=== PATIENT | male | born 1995 | race Two or more races ===

== ENCOUNTER 2020-01-07 23:51 | Inpatient (IN) | payer SELFPAY ==
[2020-01-08] MEDS: Ondansetron 4 MG/2 ML SDV ONE (00:05)
--- NOTE | 2020-01-08 00:14 | EDM.PDOC ---
ED HPI GENERAL MEDICAL PROBLEM - General Chief Complaint: General Stated Complaint: intoxication/unresponsive Time Seen by Provider: 01/07/20 23:51 Source of Information: Reports: EMS, EMS Notes Reviewed History Limitations: Reports: Altered Mental Status, Intoxication - History of Present Illness INITIAL COMMENTS - FREE TEXT/NARRATIVE: Pt comes into the emergency department via EMS for episode of unresponsive. 911 dispatch to local [facility] for patient that was outside sitting on the ground and not responding. States that friends who were with him stated that he became extrem brenna intoxicated and was having difficulty standing he began to slump over and they assisted him to the ground where he then was not longer answering any questions appropriately. They state that he did not hit his head however the patient does have known abrasions to the head. EMS started an IV placed patient c-collar brought into the emergency department. Just prior to arrival to the emergency department the patient began vomiting in the ambulance. Patient has no family or individuals who had accompanied him into the emergency department. Patient remains unreliable for historian purposes. Onset: Unknown/Unsure - Related Data Allergies Allergy/AdvReac Type Severity Reaction Status Date / Time Unable to Assess Allergy Unverified 01/08/20 00:45 Home Meds: Home Meds . [Unable to Verify Home Med List] 01/08/20 [History] ED ROS GENERAL - Review of Systems Review Of Systems: Unable To Obtain Reason Not Obtained: not verbally responsive ED EXAM, GENERAL - Physical Exam Exam: See Below Exam Limited By: Altered Mental Status General Appearance: No Apparent Distress Eye Exam: Bilateral Eye: Nystagmus, PERRL Ears: Normal External Exam, Normal Canal, Hearing Grossly Normal, Normal TMs Ear Exam: Bilateral Ear: Auricle Normal, Canal Normal, TM normal Nose: Normal Inspection, Normal Mucosa Throat/Mouth: Normal Inspection, Normal Lips, Normal Voice, No Airway Compromise, Other (dried vomit on lips ) Head: Other (abrasion noted to right upper forehead with rock valerio noted. No hematoma, active bleeding, or ecchymosis noted) Neck: Normal Inspection Respiratory/Chest: No Respiratory Distress, Lungs Clear, Normal Breath Sounds, No Accessory Muscle Use, Chest Non-Tender Cardiovascular: Normal Peripheral Pulses, Regular Rate, Rhythm GI/Abdominal: Normal Bowel Sounds, Soft, No Organomegaly, No Distention, No Abnormal Bruit, No Mass, Other (active vomiting of chucks of food and liquids noted ) Back Exam: Normal Inspection, Full Range of Motion Extremities: Normal Inspection, No Pedal Edema, Normal Capillary Refill Neurological: Unresponsive Skin Exam: Warm, Dry, Intact Course - Orders/Labs/Meds Orders: Active Orders 24 hr Category Date Time Status Admission Status [Patient Status] [ADT] Routine ADT 01/08/20 01:15 Active EKG Documentation Completion [RC] STAT Care 01/08/20 00:58 Active Cervical Spine wo Cont [CT] Stat Exams 01/07/20 23:59 Taken Head wo Cont [CT] Stat Exams 01/07/20 23:59 Taken CORONAVIRUS COVID-19 PCR PHL Stat Lab 01/08/20 01:03 Ordered Magnesium Sulfate/Water [Magnesium Sulfate in Water Med 01/08/20 00:56 Active Premix] 2 gm Premix Bag 1 bag IV ONETIME Potassium Chloride Riders [KCL 20 MEQ in Water 50 ML] Med 01/08/20 00:59 Active 20 meq Premix Bag 1 bag IV ONETIME Medication Orders Magnesium Sulfate 2 gm/ Premix 50 mls @ 25 mls/hr IV ONETIME ONE Stop: 01/08/20 02:55 Potassium Chloride 20 meq/ (Premix) 50 mls @ 50 mls/hr IV ONETIME ONE Stop: 01/08/20 01:58 Labs: Laboratory Tests 01/08/20 01/08/20 01/08/20 Range/Units 00:15 00:18 00:18 WBC 10.8 H (4.0-10.0) x10^3/uL RBC 4.64 (4.5-6.0) x10^6/uL Hgb 14.5 (14.0-18.0) g/dL Hct 41.5 (40.0-52.0) % MCV 89.4 (78.0-93.0) fL MCH 31.3 (26.0-32.0) pg MCHC 34.9 (32.0-36.0) g/dL RDW Coeff of Ivonne 12.9 (10.0-15.0) % Plt Count 220 (130-400) x10^3/uL Neut % (Auto) 60.2 (50.0-80.0) % Lymph % (Auto) 29.6 (25.0-50.0) % [place] % (Auto) 8.0 (2.0-11.0) % Eos % (Auto) 2.0 (0.0-4.0) % Baso % (Auto) 0.2 (0.2-1.2) % Sodium 141 (136-145) mmol/L Potassium 2.4 L* (3.5-5.1) mmol/L Chloride 107 (98-107) mmol/L Carbon Dioxide 21 (21-32) mmol/L Anion Gap 15.4 (10-20) mmol/L BUN 9 (7-18) mg/dL Creatinine 0.9 (0.70-1.30) mg/dL Est Cr Clr Drug Dosing TNP Estimated GFR (MDRD) > 60 Glucose 119 H (74-106) mg/dL Calcium 7.3 L (8.5-10.1) mg/dL Corrected Calcium 7.62 L (8.5-10.1) mg/dL Total Bilirubin 0.2 (0.2-1.0) mg/dL AST 11 L (15-37) U/L ALT 16 (16-63) U/L Alkaline Phosphatase 82 (46-116) U/L Total Protein 6.3 L (6.4-8.2) g/dL Albumin 3.6 (3.4-5.0) g/dL Globulin 2.7 Albumin/Globulin Ratio 1.33 Urine Opiates Screen Negative (NEGATIVE) Ur Buprenorphine Scrn Negative (NEGATIVE) Ur Oxycodone Screen Negative (NEGATIVE) Ur EDDP (Meth Metab) Negative (NEGATIVE) Urine Methadone Screen Negative (NEGATIVE) Ur Barbituates Screen Negative (NEGATIVE) Ur Tricyclics Screen Negative (NEGATIVE) Ur Phencyclidine Scrn Negative (NEGATIVE) Ur Amphetamines Screen Negative (NEGATIVE) U Methamphetamines Scrn Negative (NEGATIVE) Urine MDMA Screen Negative (NEGATIVE) U Benzodiazepines Scrn Negative (NEGATIVE) Urine Cocaine Screen Negative (NEGATIVE) U Marijuana (THC) Screen Negative (NEGATIVE) Ethyl Alcohol 316 H* (0-3) mg/dL Meds: Medications Generic Name Dose Route Start Last Admin Trade Name Freq PRN Reason Stop Dose Admin Magnesium Sulfate 2 gm/ Premix 50 mls @ 25 mls/hr 01/08/20 00:56 IV 01/08/20 02:55 ONETIME ONE Potassium Chloride 20 meq/ 50 mls @ 50 mls/hr 01/08/20 00:59 Premix IV 01/08/20 01:58 ONETIME ONE Discontinued Medications Generic Name Dose Route Start Last Admin Trade Name Sury PRN Reason Stop Dose Admin Sodium Chloride 1,000 mls @ 1,000 mls/hr 01/07/20 23:59 Normal Saline IV 01/08/20 00:58 ONETIME ONE Ondansetron HCl Confirm 01/08/20 00:02 Zofran Administered 01/08/20 00:03 Dose 4 mg .ROUTE .STK-MED ONE Thiamine HCl 100 mg 01/08/20 01:09 Vitamin B-1 IM 01/08/20 01:10 ONETIME ONE Departure - Departure Time of Disposition: 01:15 Disposition: Admitted As Inpatient 65 Condition: Fair Clinical Impression: Unresponsive episode, Hypokalemia Alcohol intoxication Qualifiers: Complication of substance-induced condition: with unspecified complication Qualified Code(s): F10.929 - Alcohol use, unspecified with intoxication, unspecified - Discharge Information *PRESCRIPTION DRUG MONITORING PROGRAM REVIEWED*: Not Applicable *COPY OF PRESCRIPTION DRUG MONITORING REPORT IN PATIENT JERRELL: Not Applicable Referrals: PCP,None [Primary Care Provider] - Forms: ED Department Discharge - My Orders Last 24 Hours: My Active Orders 01/07/20 23:59 Cervical Spine wo Cont [CT] Stat Head wo Cont [CT] Stat 01/08/20 00:56 Magnesium Sulfate/Water [Magnesium Sulfate in Water Premix] 2 gm Premix Bag 1 bag IV ONETIME 01/08/20 00:58 EKG Documentation Completion [RC] STAT 01/08/20 00:59 Potassium Chloride Riders [KCL 20 MEQ in Water 50 ML] 20 meq Premix Bag 1 bag IV ONETIME 01/08/20 01:03 CORONAVIRUS COVID-19 PCR PHL Stat 01/08/20 01:15 Admission Status [Patient Status] [ADT] Routine - Assessment/Plan Last 24 Hours: My Active Orders 01/07/20 23:59 Cervical Spine wo Cont [CT] Stat Head wo Cont [CT] Stat 01/08/20 00:56 Magnesium Sulfate/Water [Magnesium Sulfate in Water Premix] 2 gm Premix Bag 1 bag IV ONETIME 01/08/20 00:58 EKG Documentation Completion [RC] STAT 01/08/20 00:59 Potassium Chloride Riders [KCL 20 MEQ in Water 50 ML] 20 meq Premix Bag 1 bag IV ONETIME 01/08/20 01:03 CORONAVIRUS COVID-19 PCR PHL Stat 01/08/20 01:15 Admission Status [Patient Status] [ADT] Routine Assessment:: 1. intoxication 2. unresponsive 3. Hypokalemia Plan: 1. Labs completed in the ER. 2. CT of the head and neck due to patient unresponsive and forehead abrasion- bystanders reported to EMS he did not fall but did not accompany pt to ER for further clarity- negative acute findings. Suspect arachnoid cyst posterior to the left cerebellum. 3. IV fluids provided- 1 L NS 4. UA/tox completed in ER. 5. Zofran given in the ER to help with vomiting 6. Covid-19 screening completed in ER. 7. Magnesium 2gm ordered and started in ER. 8. KCL 20meq ordered will be given on the floor 9. C-collar removed after CT results 9. Consultation completed with Dr. Rosa who will admit the pt to acute care for further medical management 10. Dr. Rosa request Thiamine 100mg IM ordered. Medication will be given on the floor 11. Nursing staff was updated regarding the plan of care
[2020-01-08 00:30] LABS: BUPRENORPHINE,URINE NEGATIVE (NEGATIVE); MARIJUANA,URINE NEGATIVE (NEGATIVE)
[2020-01-08 00:31] LABS: PHENCYCLIDINE,URINE NEGATIVE (NEGATIVE)
[2020-01-08 00:32] LABS: METHYLENEDIOXYMETHAMP,UR NEGATIVE (NEGATIVE)
[2020-01-08 00:53] LABS: CHLORIDE,CL 107 mmol/L (98-107); SODIUM,NA 141 mmol/L (136-145)
[2020-01-08 00:54] LABS: ANION GAP 15.4 mmol/L (10-20)
[2020-01-08] MEDS: Magnesium Sulfate/Water 2 GM in Premix Bag 1 BAG IV ONE (01:21)
[2020-01-08] MEDS: Thiamine 200 MG/2 ML MDV IM ONE ×2 (01:23→02:26)
[2020-01-08] MEDS: Sodium Chloride 0.9% 1,000 ML IV ONE ×2 (01:46→02:00)
[2020-01-08] MEDS ORDERED: Sodium Chloride 0.9% 10 ML Syringe FLUSH PRN (01:55)
[2020-01-08] MEDS ORDERED: Thiamine 200 MG/2 ML MDV IM ONE (02:09)
[2020-01-08] MEDS: Potassium Chloride Riders 20 MEQ in Premix Bag 1 BAG IV ONE (02:36)
[2020-01-08] MEDS: Dextrose 5%-0.9% NaCl with KCl 1,000 ML IV SCH ×2 (03:06→04:36)
--- NOTE | 2020-01-08 04:19 | HP ---
[id number] CHIEF COMPLAINT: The patient unable to give any. According to the emergency room provider note, the patient was brought to the emergency room by the ambulance. HISTORY OF PRESENT ILLNESS: The patient evidently is a 24-year-old male on a work visa from [facility]. He was found by some acquaintances to be outside of a bar after a lot of drinking. The patient could not stand up at all and then slumped over. They assisted him to the ground and they did not witness any head injuries. The patient was brought to the emergency room with a C-collar in position. In the ambulance, he had some vomiting as well. In the emergency room, he was not able to give any history. No other history was available from his associates. The patient was found to be hypokalemic in the emergency room. He is admitted for acute alcohol intoxication and hypokalemia. PAST MEDICAL HISTORY: Unknown. SOCIAL HISTORY: He is here on a work visa. Staff are attempting to locate next of kin. Habits, unknown. ALLERGIES: Unknown. MEDICATIONS: Unknown. REVIEW OF SYSTEMS: Unable to obtain. PHYSICAL EXAMINATION: Vital Signs: On the floor, his blood pressure is 84/39, heart rate 63, respiratory rate 14 with obvious alcohol on his breath, temperature 97.8. General: The patient appears to be well nourished. He is lying on his side. He does not respond to sternal rub or tickling on his nose. He does respond with withdrawal of his arm quite forcefully when IV Insertion attempt was made. He also withdraws his legs when passive range of motion of his legs was attempted. Skin: There are some superficial abrasions around the right forehead and nondenominational. Tattoo on his right forearm. Lymphatics: nonpalpable at neck or groin. Lungs: Clear. Cor: S1 and S2 normal without rubs, murmurs, or gallops. Abdomen: Soft and nontender. Extremities: No clubbing, cyanosis, or edema. Neurologic: Mental status is as above. Pupuls are somewhat dilated, but equal and reactive to light, and he intermittently withdraws to noxious stimulus. LABORATORY DATA: White count 10,800, hemoglobin 14.5, hematocrit 41.5, MCV 89.4, platelet count 220,000. Sodium 141, potassium 2.4, chloride 107, CO2 of 21, BUN 9, creatinine 0.9, glucose 119, corrected calcium 7.62, bilirubin 0.2, AST 11, ALT 16, alk phos 82, total protein 6.3, albumin 3.6. Toxicology is negative except for an alcohol level of 316. COVID test screen is negative. The patient had a head CT done showing no signs of intracranial bleeding. A CT spine done, which is normal as well. IMPRESSION: 1. Acute alcohol intoxication: The patient will be on his side at 30-degree angle to prevent aspiration. We will monitor oxygenation and respiratory status. 2. Hypokalemia, replaced with potassium: Unclear if he has been vomiting or what the cause of hypokalemia is. 3. Hypocalcemia. We will check in the morning. 4. Abrasions. We will check and see if he has had any tetanus immunizations. If not, that will need to be given. 5. Mild hypotension: We will rehydrate with D5 normal saline and normal saline. The patient will be kept n.p.o. throughout. MZL: 01/08/2020 02:25:33 MODL: 01/08/2020 04:14:09 /[id number] TOÑA
[2020-01-08 08:07] LABS: CHLORIDE,CL 112 mmol/L (98-107); SODIUM,NA 144 mmol/L (136-145)
[2020-01-08 08:12] LABS: ANION GAP 13.5 mmol/L (10-20)
[2020-01-08] MEDS: Nicotine 14 MG/24 Hr Patch TRDERM ONE (08:47)
--- NOTE | 2020-01-08 10:33 | PCM.PN ---
- General Info Date of Service: 01/08/20 Subjective Update: S: Pt woke up at 6:45 and pulled out his IV line, demanded to be discharged. He said he remembered going to a bar and drinking heavily and not much after that. He says he drinks rarely and had just broken up with his girlfriend. Pt was convinced to stay as his abs were not back yet and he had no way of finding his car and even if he did, he likely was still too drunk to drive legally. Pt consented to stay. 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 Pt denies any vomiting or diarrhea to account for low K +but has been working hard and not hydrating. - Patient Data Vitals - Most Recent: Last Vital Signs Temp 97.4 F 01/08/20 05:05 Pulse 57 L 01/08/20 05:05 Resp 16 01/08/20 05:05 BP 93/36 L 01/08/20 05:05 Pulse Ox 57 L 01/08/20 09:07 Weight - Most Recent: 156 lb 11.2 oz I&O - Last 24 Hours: Intake & Output 01/07/20 01/08/20 01/08/20 22:59 06:59 14:59 Intake Total 2330 Balance 2330 Lab Results Last 24 Hours: Laboratory Results - last 24 hr 01/08/20 01/08/20 01/08/20 Range/Units 00:15 00:18 00:18 WBC 10.8 H (4.0-10.0) x10^3/uL RBC 4.64 (4.5-6.0) x10^6/uL Hgb 14.5 (14.0-18.0) g/dL Hct 41.5 (40.0-52.0) % MCV 89.4 (78.0-93.0) fL MCH 31.3 (26.0-32.0) pg MCHC 34.9 (32.0-36.0) g/dL RDW Coeff of Ivonne 12.9 (10.0-15.0) % Plt Count 220 (130-400) x10^3/uL Neut % (Auto) 60.2 (50.0-80.0) % Lymph % (Auto) 29.6 (25.0-50.0) % [place] % (Auto) 8.0 (2.0-11.0) % Eos % (Auto) 2.0 (0.0-4.0) % Baso % (Auto) 0.2 (0.2-1.2) % Sodium 141 (136-145) mmol/L Potassium 2.4 L* (3.5-5.1) mmol/L Chloride 107 (98-107) mmol/L Carbon Dioxide 21 (21-32) mmol/L Anion Gap 15.4 (10-20) mmol/L BUN 9 (7-18) mg/dL Creatinine 0.9 (0.70-1.30) mg/dL Est Cr Clr Drug Dosing TNP Estimated GFR (MDRD) > 60 Glucose 119 H (74-106) mg/dL Calcium 7.3 L (8.5-10.1) mg/dL Corrected Calcium 7.62 L (8.5-10.1) mg/dL Total Bilirubin 0.2 (0.2-1.0) mg/dL AST 11 L (15-37) U/L ALT 16 (16-63) U/L Alkaline Phosphatase 82 (46-116) U/L Total Protein 6.3 L (6.4-8.2) g/dL Albumin 3.6 (3.4-5.0) g/dL Globulin 2.7 Albumin/Globulin Ratio 1.33 Urine Opiates Screen Negative (NEGATIVE) Ur Buprenorphine Scrn Negative (NEGATIVE) Ur Oxycodone Screen Negative (NEGATIVE) Ur EDDP (Meth Metab) Negative (NEGATIVE) Urine Methadone Screen Negative (NEGATIVE) Ur Barbituates Screen Negative (NEGATIVE) Ur Tricyclics Screen Negative (NEGATIVE) Ur Phencyclidine Scrn Negative (NEGATIVE) Ur Amphetamines Screen Negative (NEGATIVE) U Methamphetamines Scrn Negative (NEGATIVE) Urine MDMA Screen Negative (NEGATIVE) U Benzodiazepines Scrn Negative (NEGATIVE) Urine Cocaine Screen Negative (NEGATIVE) U Marijuana (THC) Screen Negative (NEGATIVE) Ethyl Alcohol 316 H* (0-3) mg/dL COVID-19 (DIMPLE) (NEGATIVE) 07/12/20 07/12/20 07/12/20 Range/Units 01:06 07:35 07:35 WBC 8.8 (4.0-10.0) x10^3/uL RBC 5.03 (4.5-6.0) x10^6/uL Hgb 15.8 (14.0-18.0) g/dL Hct 45.2 (40.0-52.0) % MCV 89.9 (78.0-93.0) fL MCH 31.4 (26.0-32.0) pg MCHC 35.0 (32.0-36.0) g/dL RDW Coeff of Ivonne 13.3 (10.0-15.0) % Plt Count 233 (130-400) x10^3/uL Neut % (Auto) 62.4 (50.0-80.0) % Lymph % (Auto) 28.9 (25.0-50.0) % [place] % (Auto) 7.6 (2.0-11.0) % Eos % (Auto) 0.9 (0.0-4.0) % Baso % (Auto) 0.2 (0.2-1.2) % Sodium 144 (136-145) mmol/L Potassium 4.5 D (3.5-5.1) mmol/L Chloride 112 H (98-107) mmol/L Carbon Dioxide 23 (21-32) mmol/L Anion Gap 13.5 (10-20) mmol/L BUN 6 L (7-18) mg/dL Creatinine 0.8 (0.70-1.30) mg/dL Est Cr Clr Drug Dosing 127.38 Estimated GFR (MDRD) > 60 Glucose 101 (74-106) mg/dL Calcium 7.6 L (8.5-10.1) mg/dL Corrected Calcium 7.84 L (8.5-10.1) mg/dL Total Bilirubin 0.2 (0.2-1.0) mg/dL AST 15 (15-37) U/L ALT 23 (16-63) U/L Alkaline Phosphatase 86 (46-116) U/L Total Protein 6.7 (6.4-8.2) g/dL Albumin 3.7 (3.4-5.0) g/dL Globulin 3.0 Albumin/Globulin Ratio 1.23 Urine Opiates Screen (NEGATIVE) Ur Buprenorphine Scrn (NEGATIVE) Ur Oxycodone Screen (NEGATIVE) Ur EDDP (Meth Metab) (NEGATIVE) Urine Methadone Screen (NEGATIVE) Ur Barbituates Screen (NEGATIVE) Ur Tricyclics Screen (NEGATIVE) Ur Phencyclidine Scrn (NEGATIVE) Ur Amphetamines Screen (NEGATIVE) U Methamphetamines Scrn (NEGATIVE) Urine MDMA Screen (NEGATIVE) U Benzodiazepines Scrn (NEGATIVE) Urine Cocaine Screen (NEGATIVE) U Marijuana (THC) Screen (NEGATIVE) Ethyl Alcohol (0-3) mg/dL COVID-19 (DIMPLE) Negative (NEGATIVE) Med Orders - Current: Current Medications Potassium Chloride/Dextrose/Sod Cl (D5 Ns With 20 Meq Kcl) 1,000 mls @ 200 mls/hr IV ASDIRECTED [facility] Last Admin: 01/08/20 04:36 Dose: 200 mls/hr Documented by: Discontinued Medications Sodium Chloride (Normal Saline) 1,000 mls @ 1,000 mls/hr IV ONETIME ONE Stop: 01/08/20 00:58 Last Admin: 01/08/20 01:46 Dose: Not Given Documented by: Magnesium Sulfate 2 gm/ Premix 50 mls @ 25 mls/hr IV ONETIME ONE Stop: 01/08/20 02:55 Last Admin: 01/08/20 01:21 Dose: 25 mls/hr Documented by: Potassium Chloride 20 meq/ (Premix) 50 mls @ 50 mls/hr IV ONETIME ONE Stop: 01/08/20 01:58 Last Admin: 01/08/20 02:36 Dose: 50 mls/hr Documented by: Potassium Chloride/Dextrose/Sod Cl (D5 Ns With 20 Meq Kcl) 1,000 mls @ 200 mls/hr IV .Q5H [facility] Last Admin: 01/08/20 03:06 Dose: Not Given Documented by: Sodium Chloride (Normal Saline) 1,000 mls @ 999 mls/hr IV ONETIME ONE Stop: 01/08/20 03:02 Last Admin: 01/08/20 02:00 Dose: 999 mls/hr Documented by: Nicotine (Habitrol) 14 mg TRDERM ONETIME ONE Stop: 01/08/20 08:08 Last Admin: 01/08/20 08:47 Dose: 14 mg Documented by: Ondansetron HCl (Zofran) Confirm Administered Dose 4 mg .ROUTE .STK-MED ONE Stop: 01/08/20 00:03 Last Admin: 01/08/20 00:05 Dose: 4 mg Documented by: Sodium Chloride (Saline Flush) 10 ml FLUSH ASDIRECTED PRN PRN Reason: Keep Vein Open Thiamine HCl (Vitamin B-1) 100 mg IM ONETIME ONE Stop: 01/08/20 01:10 Last Admin: 01/08/20 01:23 Dose: 100 mg Documented by: - Exam General: Alert (pt's speech appropriate and he was able sae reasoned with. AT 10:30 pt was sleeping again, was rpused and was very coopertive an dunderstanding but unable to do tandem walk.) Sepsis Event Note - Evaluation Sepsis Screening Result: No Definite Risk - Focused Exam Vital Signs: Vital Signs Temp Pulse Resp BP BP Pulse Ox 01/08/20 09:07 57 L 01/08/20 05:05 97.4 F 57 L 16 93/36 L 97 01/08/20 02:30 90/50 L 01/08/20 01:55 97.8 F 01/08/20 01:40 97.8 F 63 14 84/37 L 96 01/08/20 00:30 80 14 122/68 99 01/07/20 23:55 97.8 F 94 16 156/96 H 97 Date Exam was Performed: 01/08/20 Time Exam was Performed: 10:28 - Problem List Review Problem List Initiated/Reviewed/Updated: Yes - My Orders Last 24 Hours: My Active Orders 01/08/20 01:55 Patient Status [ADT] Routine VTE/DVT Education [RC] PER UNIT ROUTINE Vital Signs [RC] 02,06,10,14,18,22 Saline Lock Insert [OM.PC] Routine Resuscitation Status Routine 01/08/20 01:57 Pulse Oximetry [RC] 01/08/20 02:04 Communication Order [RC] 01/08/20 02:30 Dextrose 5%-0.9% NaCl with KCl [D5 NS with 20 mEq KCl] 1,000 ml IV ASDIRECTED 01/08/20 Breakfast 2 Gram Sodium Diet [DIET] Nothing per Oral Now Diet [DIET] - Plan Plan:: 1. Alcohol intoxication: pt will be discharged when he can do tandem walk 2. Hypokalemia: resolved, may have been from dehydration .
--- NOTE | 2020-01-08 13:33 | DISCH ---
HOSPITAL COURSE: Mr. Marsh was admitted fairly obtunded from alcohol intoxication and low potassium. He was given IV normal saline as well as thiamine, magnesium, and then D5 normal saline with 40 potassium chloride. His blood pressure went from 86 systolic to over 90 systolic. The patient's potassium increased to discharge value of 4.5. By early next morning, the patient woke up and wanted to be discharged, although he was still groggy. He was convinced to stay until approximately 11:30 when he wanted to be discharged again. He failed his first tandem walk, but then, on the second trial about an hour later, he was able to tandem walk successfully. At that point, he was awake, alert, and oriented. He was able to say that he had not been a habitual drinker, but had drunk because he had broken up with his girlfriend. He denied any GI symptoms that would account for what his potassium was, but he had been working hard and not been hydrating himself. The patient was allowed to discharge to home. He was advised to avoid alcohol, avoid cigarettes, and avoid driving today. He is encouraged to drink 8 to 10 glasses of electrolyte solutions while he is working, and if he feels weak, he is to return for repeat electrolyte check. DISCHARGE DIAGNOSES: 1. Acute alcoholic episode, resolved. 2. Hypokalemia, resolved. DIET: As tolerated. Push fluids. ACTIVITY: As tolerated. Rest today, and no driving. 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 FOLLOWUP: MZL: 01/08/2020 11:41:47 MODL: 01/08/2020 13:27:53 /[id number]
--- NOTE | 2020-01-09 12:23 | CT ---
[id number] CT/CT Head WO IV EXAM: CT Head WO IV CLINICAL DATA: UNRESPONSIVE,ETOH,ABRASION TO HEAD. COMPARISON STUDY: None FINDINGS: No intracranial hemorrhage, extra-axial fluid collection, mass, or acute ischemia. Arachnoid cyst within the left posterior fossa. Generalized parenchymal atrophy with scattered areas of nonspecific white matter disease, commonly seen as sequela of chronic microvascular ischemia. Frontal scalp hematoma without underlying calvarial fracture. Paranasal sinuses and mastoid air cells are clear. IMPRESSION: 1. Frontal scalp hematoma without underlying calvarial fracture. Estiven Coto DO 01/09/20 [id number] Thank you for allowing us to participate in the care of your patient.
--- NOTE | 2020-01-09 12:25 | CT ---
[id number] CT/CT Cervical Spine WO IV Exam: CT Cervical Spine WO IV CLINICAL DATA: UNRESPONSIVE. COMPARISON: None. FINDINGS: No fracture or subluxation is seen. The C1-C2 articulation is unremarkable. The prevertebral soft tissues are within normal limits. IMPRESSION: NO FRACTURE OR SUBLUXATION. Estiven Coto DO 01/09/20 1224 Thank you for allowing us to participate in the care of your patient.
== END 2020-01-08 11:50 | disposition home or self-care (01) | DRG 897 ==
LOC: VM.ED 23:51 → SUPCPDRO 23:51 → VM.MS 01-08 01:53
PROVIDERS: ADMIT Internal Medicine; ATTEND Internal Medicine
DX: F10.129 Alcohol abuse with intoxication, unspecified (principal); Y90.8 Blood alcohol level of 240 mg/100 ml or more; E87.6 Hypokalemia; E83.51 Hypocalcemia; S00.81XA Abrasion of other part of head, initial encounter; Z20.828 Contact with and (suspected) exposure to other viral communicable diseases; I95.9 Hypotension, unspecified; X58.XXXA Exposure to other specified factors, initial encounter
CPT/HCPCS: 36415; 70450; 72125; 80053; 80305-QW; 80307; 85025; 93005; 99285-25; A9270-GY; J2405; J3411; J3475; J3480; J7030; U0002